=== PATIENT | female | born 1945 | race Hispanic/Latino ===

== ENCOUNTER 2025-02-10 18:24 | Emergency (ER) | payer MEDICARE ==
[~2025-02-10] VITALS: Ht 149.9 cm; Wt 56.9 kg
[~2025-02-10 18:24] MED LIST: ATOR40TA71 PO; CARB100T12 PO; CARB200T5 PO; ERGO500014 PO; LATA2.5D7 OP; LEVO100T12 PO; LOSA50TA64 PO; METF-444 PO; TOPI-257 PO
--- NOTE | 2025-02-10 18:46 | ERN ---
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 Patient denies any falls but reports pain started after that. Allergies: Coded Allergies: No Known Drug Allergies (Unverified Allergy, Unknown, 07/30/16) Home Meds Reported Medications Latanoprost (Latanoprost) 2.5 Ml Drops, 2.5 ML OP DAILY, DROP 01/04/17 Carbamazepine (Epitol) 200 Mg Tablet, 200 MG PO DAILY, TAB 01/04/17 Topiramate (Topiramate) 25 Mg Tablet, 25 MG PO BID, TAB 08/10/16 Atorvastatin Calcium (Atorvastatin Calcium) 40 Mg Tablet, 40 MG PO HS, TAB 08/10/16 Levothyroxine Sodium (Levothyroxine Sodium) 100 Mcg Tablet, 100 MCG PO DAILY, TAB 08/10/16 Losartan Potassium (Losartan Potassium) 50 Mg Tablet, 50 MG PO DAILY, TAB 08/10/16 Metformin HCl (Metformin HCl) 500 Mg Tablet, 500 MG PO BID, TAB 08/10/16 Ergocalciferol (Vitamin D2) (Vitamin D2) 50,000 Unit Capsule, 29347 UNIT PO QWEEK, CAP 08/10/16 Carbamazepine (Carbamazepine) 100 Mg Tab.chew, 100 MG PO HS, TAB.CHEW 08/10/16 Past Medical History Past Medical History: Hypertension, Hypothyroid Surgical History: Other Surgical History Other: LOWER BACK SX RN Note Reviewed/Agreed w/PFSH: Yes Review of System Dictation Constitutional: Negative for fever,chills, and weight loss Eyes: Negative for injury, pain,redness, and discharge ENT: Negative for injury,pain or swelling Cardiovascular: Negative for chest pain, palpitations, and edema Respiratory: Negative for shortness of breath, cough, and wheezing, Abdomen/GI: Negative for abdominal pain, nausea, vomiting, diarrhea, and constipation Back: Negative for injury and pain : Negative for injury, bleeding and discharge MS/Extremity: Positive for right knee pain Skin: Negative for rash, and discoloration Neuro: Negative for headache, weakness, numbness, tingling, and seizure Psych: Negative for suicide ideation, homicidal ideation, and hallucinations Initial Vital Sign VS Vital Signs Date Time Temp Pulse Resp B/P (MAP) Pulse Ox O2 Delivery O2 Flow Rate FiO2 02/10/25 18:28 97.0 71 16 156/53 96 Room Air 0 02/10/25 21:00 21 Physical Exam Dictation Vital Signs reviewed General Appearance: Alert, oriented x 3, no acute distress, well developed, nourished. Head and Face: non-traumatic. Eyes: PERRL, pink conjunctivas, eyelid no trauma, anterior chamber with arcus senilis. Ears: Pinnas intact and no signs of trauma or erythema ear canals clear and no discharge TM no erythema Nose: No discharge, no bleeding. Oropharynx: Mouth normal, tongue pink. pharynx clear,no erythema, tonsils no exudates, no abscesses noted, mucous membrane moist Neck: Supple, non-tender, no thyromegaly, no masses, no JVD, no bruits Breast:Deferred Chest:No tenderness, no crepitus, no paradoxical movement, no retractions Lungs:Clear, well-ventilated, symmetric, no rales, no wheezing, no rhonchi, no stridor, good breath sounds bilaterally Heart: Regular rate, regular rhythm, no murmur, no gallops Vascular: no peripheral edema, dorsalis pedis 3+ bilateral Abdomen: Soft, positive bowel sounds, nondistended, no guarding, nontender, no rebound, no masses no hepatomegaly, no splenomegaly, no Cárdenas's sign, no hernias. Rectal: Deferred Genital: Deferred Neurological: Normal speech, motor function intact, sensory function intact Musculoskeletal: Neck nontender, full range of motion, back nontender, full range of motion, Extremities: nontender, full range of motion, mild right knee swelling, no open wounds, no erythema Skin: Color pink, dry, no turgor, no rash, no lacerations, no abrasions, no contusions. Lymphatic: Deferred Results (Laboratory/Radiology) Labs Reviewed?: Yes ED Course ED Course Orders Procedure Category Date Status Time Knee 3vws Rt RAD 02/10/25 Resulted 18:29 Acetaminophen 500mg PHA 02/10/25 Complete Tab (Tylenol 500mg T 18:30 Ketorolac PHA 02/10/25 Complete Tromethamine 30mg/Ml 18:30 Knee Immobilizer JARET 02/10/25 Complete 20:22 Current Medications Medications (Trade) Dose Ordered Sig/Marek Route PRN Reason Start Time Stop Time Status Last Admin Dose Admin Acetaminophen (TYLenol 500MG TAB) 1,000 mg ONCE ONCE PO 02/10/25 18:30 02/10/25 18:36 DC Ketorolac Tromethamine (toRADol) 30 mg ONCE ONCE IM 02/10/25 18:30 02/10/25 18:37 DC 02/10/25 19:37 Vital Signs Date Time Temp Pulse Resp B/P (MAP) Pulse Ox O2 Delivery O2 Flow Rate FiO2 02/10/25 21:00 98.2 67 18 148/54 98 Room Air* 0 21 02/10/25 18:28 97.0 71 16 156/53 96 Room Air 0 Medical Decision Making MDM The patient is a 79-year-old female with history of hypertension and hypothyroidism who presents to the emergency department with complains of right knee pain after 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 Patient denies any falls but reports pain started after that. Xray did not show any fractures or dislocations. Osteoarthritis of the knee. On physical exam patient is in no acute distress, neurovascular intact, ambulatory. Patient will be discharge to follow up with ortho. Differential diagnosis: right knee fracture, right knee effusion, knee sprain. Need for hospitalization: Patient does not meet criteria for hospitalization. There are no social concerns with this patient. DX & DISP Disposition: Discharge Departure Impression: Primary Impression: Right knee sprain Additional Impression: Knee effusion, right Condition: Stable Additional Instructions: Your xray did no show any fractures. Please follow up with your PCP in 1-2 days. Follow up with Ortho. IF anything worsens please return to ER. FOLLOW-UP WITH PRIMARY CARE PROVIDER IN 1 TO 2 DAYS. TAKE MEDICATIONS DIRECTED HERE IN THE EMERGENCY ROOM. OKAY TO CONTINUE HOME MEDICATIONS UNLESS OTHERWISE DISCUSSED DURING YOUR VISIT IN THE EMERGENCY ROOM TODAY. RETURN TO YOUR NEAREST EMERGENCY ROOM IF SYMPTOMS WORSEN OR IF THERE IS NO IMPROVEMENT. CALL 911 IF YOU NEED IMMEDIATE ASSISTANCE. TAKE TYLENOL [id number] NEEDED AND IF NO CONTRAINDICATIONS ARE PRESENT. INCREASE ORAL HYDRATION. A WOUND CULTURE OR URINE CULTURE WAS ORDERED HERE IN THE EMERGENCY ROOM DEPARTMENT PLEASE FOLLOW-UP WITH PRIMARY CARE PROVIDER AND ADVISE THEM TO GET REPEAT PORTS FROM OUR FACILITY. IF YOU HAD ANY ALON WRAP/SPLINTS THAT WERE APPLIED HERE, PLEASE DO NOT REMOVE THEM UNTIL YOU SEE YOUR PRIMARY CARE OR SPECIALTY. Referrals: SELF,REFERRAL (PCP) SARA ESCOTO MD Time of Disposition: 20:33 I have reviewed the case, and I agree with, Diagnosis and Plan OTONIEL JANE [facility] Feb 10, 2025 18:46
--- NOTE | 2025-02-10 20:58 | HMCIMG ---
EXAM: CR Right Knee, 3 Views. CLINICAL HISTORY: Pain. COMPARISON: None provided. FINDINGS: BONES: No acute fracture or aggressively appearing osseous lesion. JOINTS: Degenerative changes are seen with tibial spiking and reduction in the tibio-femoral joint space, most marked in the medial compartment. There is no joint effusion appreciated. SOFT TISSUES: The soft tissues are unremarkable. IMPRESSION: No acute osseous pathology is evident. Degenerative changes with tibial spiking and reduction in the tibio-femoral joint space, most marked in the medial compartment. /[place]
[2025-02-10 21:00] VITALS: BP 148/54; PULSE 67; RESP 18; TEMP 98.2; O2SAT 98
== END 2025-02-10 21:01 | disposition home or self-care (01) ==
LOC: EDH 18:24
DX: S83.91XA Sprain of unspecified site of right knee, initial encounter (principal); M17.11 Unilateral primary osteoarthritis, right knee; E03.9 Hypothyroidism, unspecified; I10 Essential (primary) hypertension; Z79.84 Long term (current) use of oral hypoglycemic drugs; Z79.890 Hormone replacement therapy; Z79.899 Other long term (current) drug therapy; X50.9XXA Other and unspecified overexertion or strenuous movements or postures, initial encounter; Y93.89 Activity, other specified; Y92.89 Other specified places as the place of occurrence of the external cause; Y99.8 Other external cause status
CPT/HCPCS: 73562; 96372; 29505; 99283; J1885